=== PATIENT | female | born 1960 | race Caucasian/White ===

== ENCOUNTER 2024-01-07 12:08 | Emergency (ER) | payer OTHER, SELFPAY ==
[2024-01-07 12:12] VITALS: BP 170/80
[2024-01-07] MEDS: NORCO 5/325 1 TABLET PO (13:23)
[2024-01-07 13:42] VITALS: BP 152/76
--- NOTE | 2024-01-07 13:50 | ED.GENMED ---
History of Present Illness
General
Chief Complaint: Musculo-Skeletal Complaint
Source: patient
Exam Limitations: none
Time Seen by Provider: 01/07/24 12:21
Nursing documentation reviewed up to this point in time: agreed with
Travel History
Have you had any contact with someone who has COVID-19?: No
Do you have any symptoms of coronavirus? Fever > 100 degrees, chills, cough, shortness of breath, sore throat, loss of taste or smell, muscle aches, or headache?: No
History of Present Illness
History of Present Illness:
Patient is a 63-year-old female who presents with right ankle pain. Patient reports today at work she stepped off a stool and twisted her right ankle. She is unable to bear full weight. She denies any other injuries.
Review of Systems
Review of Systems
Allergies reviewed?: Yes
All Other Systems: ROS reviewed and negative except as documented in HPI and ROS
Constitutional: Reports no symptoms
Musculoskeletal: Reports other (right ankle pain/injury )
Skin: Reports no symptoms
Psychiatric: Reports no symptoms
Phy Exam
General Physical Exam
General Presentation: no apparent distress
General age: appears stated age
General Skin: warm and dry
General Habitus: normal
General Mental: alert
General Hydration: appears well hydrated
Neurological Exam
Neurological Exam: alert and oriented x3
Musculoskeletal Exam
Musculoskeletal Exam: other (rle with strong pulses obvious swelling to ankle tender to right medial/lateral ankle no proximal fifth metatarsal tenderness no ecchymosis abrasions or lacerations, normal cap refill distal sensation)
Skin Exam
Skin Exam: normal color and warm/dry
Psychiatric Exam
Psychiatric Exam: normal mood/affect
Course
Orders/Labs/Results
Orders:
Orders
01/07/24 12:14
Ankle, Right 3 view CR [CR Ankle - Right Min 3 Views *] Urgent
Comment:
Reason For Exam: right ankle pain twisted stepping off stool
01/07/24 13:11
Hydrocodone 5/APAP 325 [[place] 5/325] 1 tablet PO NOW STA
01/07/24 13:16
Splints/Slings/Crut- Treatment ONCE
Location: Right
Type of Splint: Short Leg
01/07/24 13:43
Vital Signs- Treatment ONCE
Frequency: Once
Vital Signs
Initial and Last Documented VS:
Initial Vital Signs
Temp Pulse Resp BP Pulse Ox
97.7 F 81 16 170/80 98
01/07/24 12:12 01/07/24 12:12 01/07/24 12:12 01/07/24 12:12 01/07/24 12:12
Last Documented Vital Signs
Temp Pulse Resp BP Pulse Ox
97.7 F 80 16 152/76 98
01/07/24 12:12 01/07/24 13:42 01/07/24 13:42 01/07/24 13:42 01/07/24 13:42
Procedures
Splint Check
Splint checked by provider?: Yes
Circulation/Movement/Sensation post splint application: brisk cap refill and full sensation
MDM/Problems Addressed
Differential Diagnosis Includes:
Not limited to sprain versus fracture
MDM/Problems Addressed:
Patient with obvious fracture to ankle. Strong pulses neurovascular intact. I did speak with orthopedics as patient has both lateral and medial fracture. Orthopedics, DR Marquez was able to visualize image on [place] text recommend splinting
nonweightbearing. Posterior splint was applied by RN splint checked by myself all instructions were reviewed with patient . Patient was medicated for pain and a prescription for pain was sent to pharmacy.
1430: [facility] called and reports that they do not have hydrocodone 5/300 any prescription for 5/325 was sent. They will delete initial prescription
Chronic conditions affecting care:
On meloxicam not able to take NSAIDs
*Radiology
Radiology exam reviewed: radiology read reviewed
*Pulse Oximetry
Patient hypoxic: no
*Critical Care Note
Total Time (30-74mins, 75-104mins- exclusive of procedures): Not Applicable
Patient Management
Discussion with other providers: Business Analytics Specialist (ortho Dr Marquez )
ED Attending Note
-
Portions of this chart may have been created with voice recognition software.� Occasional wrong word or��sound alike� substitutions may have occurred due to the inherent limitations of voice recognition software.
Discharge Plan
Departure
Patient Disposition: Home (Routine Discharge)
Date of Disposition: 01/07/24
Time of Disposition: 13:43
Patient with high blood pressure during this ER visit?: Yes
Condition: Fair
Covid-19: Not Applicable
Discharge Problem:
Ankle fracture
Instructions: Ankle Fracture (DC), Splint Care, BLOOD PRESSURE
Prescriptions:
New
hydrocodone-acetaminophen 5-300 mg tablet
1 tab PO Q6H PRN (Reason: Pain) Qty: 10 0RF
hydrocodone-acetaminophen 5-325 mg tablet
1 tab PO Q6H PRN (Reason: Pain) Qty: 10 0RF
Referrals:
Nicholas Marquez MD [Active] -
Titus Lebron MD [Family Provider] -
Activity Restrictions/Additional Instructions:
Wear splint for support until seen and eval by orthopedics. Do not remove splint; do not wet splint. Do not bear weight on splint use crutches for ambulation. Try to keep elevates as much as possible. Ice over the affected area for the first 24
hours 20 minutes at a time several times a day. You may take your normal meloxicam however take pain medication only as needed. This medication will cause drowsiness no driving or drinking alcohol on medication. This medication may also cause
constipation. Be sure to take [id number] stool softener while taking this medication.
Call orthopedics today for an appointment next 2 days. return for any worsening of symptoms
Interventions
Interventions:
ED- Fall Risk Assessment Last Done: 01/07/24 13:42
*ED COVID-19 Vaccine History Last Done: 01/07/24 12:12
*Nursing Disposition Last Done: 01/07/24 13:57
ED-Musculoskeletal Assessment Last Done: 01/07/24 13:42
Discharge Date and Time
Discharge Date/Time: 01/07/24 13:57
== END 2024-01-07 13:57 | disposition home or self-care (01) ==
LOC: EMR 12:08
PROVIDERS: EMERGENCY PHYSICIAN Emergency Medicine; FAMILY PHYSICIAN Family Medicine
DX: S82.831A Other fracture of upper and lower end of right fibula, initial encounter for closed fracture (principal); S82.54XA Nondisplaced fracture of medial malleolus of right tibia, initial encounter for closed fracture; X50.1XXA Overexertion from prolonged static or awkward postures, initial encounter
CPT/HCPCS: 99283; 29505; 73610